=== PATIENT | female | born 1945 | race Caucasian/White ===

== ENCOUNTER 2018-02-19 01:12 | Observation (INO) | payer MEDICARE, OTHER ==
[2018-02-19 01:51] LABS: ADD MAN DIFF? NO
[2018-02-19 01:52] LABS: WHITE BLOOD COUNT 11.1 10^3/ul (4.8-10.8)
[2018-02-19 01:52] LABS: BASOPHIL # 0.1 10^3/ul (0.0-0.1); BASOPHILS % 0.5 % (0.0-2.0); EOSINOPHILS # 0.2 10^3/ul (0.0-0.5); EOSINOPHILS % 1.9 % (0.0-7.0); HEMATOCRIT 41.8 % (37.0-47.0); LYMPHOCYTES # 4.3 10^3/ul (0.8-2.9); LYMPHOCYTES % 38.5 % (15.0-51.0); MEAN CORPUSCULAR HEMOGLOBIN 30.4 pg (29.0-33.0); MEAN CORPUSCULAR HGB CONC 33.5 g/dl (32.0-37.0); MEAN CORPUSCULAR VOLUME 90.7 fl (82.0-101.0); MEAN PLATELET VOLUME 10.8 fl (7.4-10.4); MONOCYTE # 0.8 10^3/ul (0.3-0.9); MONOCYTES % 7.1 % (0.0-11.0); NEUTROPHIL # 5.8 10^3/ul (1.6-7.5); NEUTROPHILS % 51.6 % (39.0-77.0); PLATELET COUNT 230 10^3/UL (140-415); RED BLOOD COUNT 4.61 10^6/ul (4.20-5.40); RED CELL DISTRIBUTION WIDTH 12.7 % (11.5-14.5)
[2018-02-19 02:23] LABS: INR 0.82; PROTIME 11.3 Sec (11.9-14.9); PT RATIO 0.9
[2018-02-19 02:31] LABS: ALANINE AMINOTRANSFERASE 39 IU/L (13-69); ALBUMIN 4.2 g/dl (3.3-4.9); ALKALINE PHOSPHATASE 97 IU/L (42-121); ASPARTATE AMINO TRANSFERASE 25 IU/L (15-46); BILIRUBIN,INDIRECT 0.1 mg/dl (0-1.1); BILIRUBIN,TOTAL 0.1 mg/dl (0.2-1.3); BLOOD UREA NITROGEN 26 mg/dl (7-20); CALCIUM 10.2 mg/dl (8.4-10.2); CARBON DIOXIDE 27 mmol/L (21-31); CHLORIDE 96 mmol/L (97-110); CREATININE 0.91 mg/dl (0.44-1.00); GLUCOSE 330 mg/dl (70-220); TOTAL PROTEIN 7.2 g/dl (6.1-8.1)
[2018-02-19] MEDS: ACETAMINOPHEN 500 MG TAB PO (02:32)
[2018-02-19 02:36] LABS: ANION GAP 13 (5-13); SODIUM 136 mmol/L (135-144)
[2018-02-19 02:43] LABS: B-TYPE NATRIURETIC PEPTIDE 49 PG/ML (0-125); TROPONIN-I < 0.012 ng/ml (0.000-0.120)
[2018-02-19] MEDS ORDERED: ACETAMINOPHEN 325 MG TAB PO (04:30)
[2018-02-19] MEDS ORDERED: NITROGLYCERIN (SL) 0.4 MG TAB SL (04:30)
[2018-02-19] MEDS ORDERED: ONDANSETRON 4 MG INJ IV (04:30)
[2018-02-19] MEDS ORDERED: GLUCOSE GEL 15 GRAM TUBE BUCCAL (05:00)
[2018-02-19] MEDS ORDERED: GLUCAGON 1 MG INJ IM (05:00)
[2018-02-19] MEDS ORDERED: GLUCOSE GEL 15 GRAM TUBE PO ×2 (05:00)
[2018-02-19] MEDS ORDERED: DEXTROSE 50% 50 ML SYRINGE IV ×2 (05:00)
[2018-02-19] MEDS: morphine 4 MG/ML VIAL IV (05:43)
[2018-02-19 06:13] LABS: ADD MAN DIFF? NO
[2018-02-19 06:16] LABS: BASOPHIL # 0.1 10^3/ul (0.0-0.1); BASOPHILS % 0.8 % (0.0-2.0); EOSINOPHILS # 0.2 10^3/ul (0.0-0.5); HEMATOCRIT 41.1 % (37.0-47.0); HEMOGLOBIN 13.4 g/dl (12.0-16.0); LYMPHOCYTES % 38.4 % (15.0-51.0); MEAN CORPUSCULAR HEMOGLOBIN 30.3 pg (29.0-33.0); MEAN CORPUSCULAR HGB CONC 32.6 g/dl (32.0-37.0); MEAN PLATELET VOLUME 11.1 fl (7.4-10.4); MONOCYTE # 0.8 10^3/ul (0.3-0.9); MONOCYTES % 7.2 % (0.0-11.0); NEUTROPHIL # 5.3 10^3/ul (1.6-7.5); NEUTROPHILS % 51.2 % (39.0-77.0); PLATELET COUNT 200 10^3/UL (140-415); RED BLOOD COUNT 4.42 10^6/ul (4.20-5.40); RED CELL DISTRIBUTION WIDTH 12.6 % (11.5-14.5)
[2018-02-19 06:16] LABS: WHITE BLOOD COUNT 10.4 10^3/ul (4.8-10.8)
[2018-02-19 06:42] LABS: TROPONIN-I < 0.012 ng/ml (0.000-0.120)
[2018-02-19 07:05] LABS: ANION GAP 7 (5-13); BLOOD UREA NITROGEN 28 mg/dl (7-20); CARBON DIOXIDE 28 mmol/L (21-31); CHLORIDE 99 mmol/L (97-110); CHOL/HDL RATIO 11.1 RATIO; CHOLESTEROL 245 mg/dl (100-200); CREATININE 1.01 mg/dl (0.44-1.00); GLUCOSE 345 mg/dl (70-220); HDL CHOLESTEROL 22 mg/dl (33-92); POTASSIUM 4.4 mmol/L (3.5-5.1); SODIUM 134 mmol/L (135-144)
[2018-02-19 07:26] LABS: LDL CHOLESTEROL,CALCULATED 108 mg/dl; TRIGLYCERIDES 573 mg/dl (0-149)
[2018-02-19] MEDS: INSULIN ASPART [NOVOLOG] 3 ML PEN SC ×4 (08:40→20:22)
[2018-02-19 11:49] LABS: TROPONIN-I < 0.012 ng/ml (0.000-0.120)
[2018-02-19] MEDS: ERGOCALCIFEROL 50,000 UNIT CAP PO (13:30)
[2018-02-19] MEDS: ALBUTEROL HFA 8 GM INHALER INH ×2 (13:30→18:50)
[2018-02-19 17:41] LABS: TROPONIN-I < 0.012 ng/ml (0.000-0.120)
[2018-02-19] MEDS: metFORMIN 500 MG TAB PO (17:45)
[2018-02-19] MEDS: DOCUSATE SODIUM 100 MG CAP PO (20:16)
[2018-02-19] MEDS: PREGABALIN 25 MG CAP PO (20:16)
[2018-02-19] MEDS ORDERED: INSULIN DETEMIR [LEVEMIR] 3ML CART SC (21:00)
[2018-02-19] MEDS: INSULIN DETEMIR [LEVEMIR] (100 UNITS/ML) SYG SC (21:07)
[2018-02-20] MEDS: morphine 4 MG/ML VIAL IV ×2 (01:17→18:17)
[2018-02-20] MEDS: ALBUTEROL HFA 8 GM INHALER INH ×3 (01:19→13:44)
[2018-02-20] MEDS: ACCU-CHEK XX (02:02)
[2018-02-20 07:08] LABS: CHOL/HDL RATIO 9.6 RATIO; HDL CHOLESTEROL 26 mg/dl (33-92); LDL CHOLESTEROL,CALCULATED 143 mg/dl; TRIGLYCERIDES 417 mg/dl (0-149)
[2018-02-20 07:08] LABS: CHOLESTEROL 252 mg/dl (100-200)
[2018-02-20] MEDS: metFORMIN 500 MG TAB PO ×2 (07:55→17:20)
[2018-02-20] MEDS: INSULIN ASPART [NOVOLOG] 3 ML PEN SC ×3 (07:55→17:40)
[2018-02-20] MEDS ORDERED: metFORMIN 500 MG TAB PO (07:55)
[2018-02-20] MEDS: FOLIC ACID 1 MG TAB PO (09:16)
[2018-02-20] MEDS: SOLIFENACIN 5 MG TAB PO (09:16)
[2018-02-20] MEDS: FENOFIBRATE 145 MG TAB PO (09:16)
[2018-02-20] MEDS: ASPIRIN 81 MG TAB PO (09:16)
[2018-02-20] MEDS: DOCUSATE SODIUM 100 MG CAP PO (09:16)
[2018-02-20] MEDS: REGADENOSON 0.4 MG/5 ML SYG (12:52)
[2018-02-20] MEDS ORDERED: ATORVASTATIN 20 MG TAB PO (21:00)
== END 2018-02-20 18:21 | disposition home or self-care (01) ==
LOC: E/R 01:12 → TEL 03:33
DX: R07.9 Chest pain, unspecified (principal); I25.10 Atherosclerotic heart disease of native coronary artery without angina pectoris; Z95.5 Presence of coronary angioplasty implant and graft; I10 Essential (primary) hypertension; E78.5 Hyperlipidemia, unspecified; E11.9 Type 2 diabetes mellitus without complications; Z79.4 Long term (current) use of insulin; Z86.73 Personal history of transient ischemic attack (TIA), and cerebral infarction without residual deficits; I25.2 Old myocardial infarction; Z72.0 Tobacco use; Z79.82 Long term (current) use of aspirin
CPT/HCPCS: 36415; 71045; 78452; 80048; 80053; 80061; 82962; 83880; 84443; 84484; 85025; 85610; 93005; 93017; 93306; 99285-25; G0378

== ENCOUNTER 2018-04-04 20:10 | Observation (INO) | payer MEDICARE, OTHER ==
[2018-04-04 20:29] LABS: ADD MAN DIFF? NO
[2018-04-04 20:32] LABS: BASOPHIL # 0.1 10^3/ul (0.0-0.1); BASOPHILS % 0.4 % (0.0-2.0); EOSINOPHILS # 0.2 10^3/ul (0.0-0.5); EOSINOPHILS % 1.7 % (0.0-7.0); HEMATOCRIT 41.3 % (37.0-47.0); HEMOGLOBIN 13.6 g/dl (12.0-16.0); LYMPHOCYTES # 4.2 10^3/ul (0.8-2.9); LYMPHOCYTES % 37.8 % (15.0-51.0); MEAN CORPUSCULAR HEMOGLOBIN 29.8 pg (29.0-33.0); MEAN CORPUSCULAR HGB CONC 32.9 g/dl (32.0-37.0); MEAN CORPUSCULAR VOLUME 90.6 fl (82.0-101.0); MEAN PLATELET VOLUME 10.7 fl (7.4-10.4); MONOCYTE # 0.9 10^3/ul (0.3-0.9); MONOCYTES % 7.8 % (0.0-11.0); NEUTROPHIL # 5.8 10^3/ul (1.6-7.5); NEUTROPHILS % 51.9 % (39.0-77.0); PLATELET COUNT 195 10^3/UL (140-415); RED BLOOD COUNT 4.56 10^6/ul (4.20-5.40)
[2018-04-04 20:32] LABS: WHITE BLOOD COUNT 11.2 10^3/ul (4.8-10.8)
[2018-04-04] MEDS: SOD CHLORIDE 0.9% 1,000 ML IV (20:50)
[2018-04-04 20:53] LABS: INR 0.83; PROTIME 11.5 Sec (11.9-14.9); PT RATIO 0.9
[2018-04-04 20:54] LABS: PARTIAL THROMBOPLASTIN TIME 28.8 Sec (23.0-35.0)
[2018-04-04 20:55] LABS: ALANINE AMINOTRANSFERASE 23 IU/L (13-69); ALBUMIN 4.2 g/dl (3.3-4.9); ALKALINE PHOSPHATASE 86 IU/L (42-121); ANION GAP 14 (5-13); ASPARTATE AMINO TRANSFERASE 23 IU/L (15-46); BILIRUBIN,INDIRECT 0.2 mg/dl (0-1.1); BILIRUBIN,TOTAL 0.2 mg/dl (0.2-1.3); BLOOD UREA NITROGEN 14 mg/dl (7-20); CARBON DIOXIDE 23 mmol/L (21-31); CHLORIDE 97 mmol/L (97-110); CREATININE 0.61 mg/dl (0.44-1.00); GLUCOSE 275 mg/dl (70-220); LIPASE 145 U/L (23-300); SODIUM 134 mmol/L (135-144); TOTAL PROTEIN 7.7 g/dl (6.1-8.1)
[2018-04-04 21:07] LABS: B-TYPE NATRIURETIC PEPTIDE 80 PG/ML (0-125); TROPONIN-I < 0.012 ng/ml (0.000-0.120)
[2018-04-04 22:35] LABS: ADD UMIC YES; UR ASCORBIC ACID NEGATIVE (NEGATIVE); UR BACTERIA FEW /HPF (NONE SEEN); UR BILIRUBIN (Dip) NEGATIVE (NEGATIVE); UR BLOOD (Dip) 1+ mg/dL (NEGATIVE); UR CLARITY SLIGHTLY CLOUDY (CLEAR); UR COLOR YELLOW (YELLOW); UR GLUCOSE (Dip) 3+ mg/dL (NEGATIVE); UR KETONES (Dip) TRACE mg/dL (NEGATIVE); UR LEUKOCYTE ESTERASE (Dip) 3+ Leu/ul (NEGATIVE); UR NITRITE (Dip) NEGATIVE (NEGATIVE); UR RBC 15 /HPF (0-5); UR SPECIFIC GRAVITY (Dip) 1.013 (1.003-1.030); UR SQUAMOUS EPITHELIAL CELL FEW /HPF (FEW); UR TOTAL PROTEIN (Dip) NEGATIVE (NEGATIVE); UR UROBILINOGEN (Dip) NEGATIVE (NEGATIVE); UR WBC 15 /HPF (0-5)
[2018-04-05] MEDS: HYDROmorphONE 0.5 MG/0.5 ML SYG IV ×2 (01:22→21:16)
[2018-04-05] MEDS: CEFTRIAXONE 1 GM/50 ML (PMX) 50 ML IVPB (01:23)
[2018-04-05] MEDS ORDERED: GLUCOSE GEL 15 GRAM TUBE BUCCAL (01:30)
[2018-04-05] MEDS ORDERED: GLUCAGON 1 MG INJ IM (01:30)
[2018-04-05] MEDS ORDERED: GLUCOSE GEL 15 GRAM TUBE PO ×2 (01:30)
[2018-04-05] MEDS ORDERED: DEXTROSE 50% 50 ML SYRINGE IV ×2 (01:30)
[2018-04-05] MEDS: PANTOPRAZOLE (EC) 40 MG TAB PO (06:24)
[2018-04-05 06:26] LABS: ANION GAP 9 (5-13); BLOOD UREA NITROGEN 12 mg/dl (7-20); CARBON DIOXIDE 26 mmol/L (21-31); CHLORIDE 100 mmol/L (97-110); GLUCOSE 288 mg/dl (70-220); POTASSIUM 3.6 mmol/L (3.5-5.1); SODIUM 135 mmol/L (135-144)
[2018-04-05] MEDS: metFORMIN 500 MG TAB PO ×2 (08:00→17:31)
[2018-04-05] MEDS: INSULIN DETEMIR [LEVEMIR] (100 UNITS/ML) SYG SC (08:00)
[2018-04-05] MEDS: INSULIN ASPART [NOVOLOG] 3 ML PEN SC ×4 (08:29→21:00)
[2018-04-05] MEDS: PRASUGREL HYDROCHLORIDE 10 MG TABLET PO (09:15)
[2018-04-05] MEDS: ASPIRIN (EC) 81 MG TAB PO (09:15)
[2018-04-05] MEDS: AMLODIPINE 10 MG TAB PO (09:16)
[2018-04-05] MEDS: SENNA TAB PO (09:16)
[2018-04-05] MEDS: LINAGLIPTIN 5 MG TABLET PO (09:17)
[2018-04-05] MEDS: LISINOPRIL 20 MG TAB PO (09:17)
[2018-04-05 12:57] LABS: CREATINE KINASE 24 IU/L (23-200)
[2018-04-05 13:09] LABS: CK INDEX 1.8; CK-MB 0.43 ng/ml (0.0-2.4); TROPONIN-I < 0.012 ng/ml (0.000-0.120)
[2018-04-05] MEDS: TOLTERODINE (SR) 4 MG CAP PO (13:16)
[2018-04-05 18:45] LABS: CREATINE KINASE 28 IU/L (23-200)
[2018-04-05 19:00] LABS: CK INDEX 1.6; CK-MB 0.44 ng/ml (0.0-2.4); TROPONIN-I < 0.012 ng/ml (0.000-0.120)
[2018-04-05] MEDS: HYDROCODONE/APAP (5/325) TAB PO (19:36)
[2018-04-05] MEDS: ACCU-CHEK XX (23:58)
[2018-04-06 05:57] LABS: ADD MAN DIFF? NO
[2018-04-06] MEDS: PANTOPRAZOLE (EC) 40 MG TAB PO (06:02)
[2018-04-06 06:09] LABS: BASOPHIL # 0.1 10^3/ul (0.0-0.1); BASOPHILS % 0.5 % (0.0-2.0); EOSINOPHILS # 0.2 10^3/ul (0.0-0.5); HEMATOCRIT 40.6 % (37.0-47.0); HEMOGLOBIN 13.4 g/dl (12.0-16.0); LYMPHOCYTES % 42.2 % (15.0-51.0); MEAN CORPUSCULAR HEMOGLOBIN 30.2 pg (29.0-33.0); MEAN CORPUSCULAR VOLUME 91.4 fl (82.0-101.0); MEAN PLATELET VOLUME 10.9 fl (7.4-10.4); MONOCYTE # 0.8 10^3/ul (0.3-0.9); NEUTROPHIL # 4.4 10^3/ul (1.6-7.5); NEUTROPHILS % 46.9 % (39.0-77.0); PLATELET COUNT 196 10^3/UL (140-415); RED BLOOD COUNT 4.44 10^6/ul (4.20-5.40); RED CELL DISTRIBUTION WIDTH 13.2 % (11.5-14.5)
[2018-04-06 06:09] LABS: WHITE BLOOD COUNT 9.5 10^3/ul (4.8-10.8)
[2018-04-06 06:19] LABS: ANION GAP 12 (5-13); BLOOD UREA NITROGEN 13 mg/dl (7-20); CALCIUM 10.2 mg/dl (8.4-10.2); CARBON DIOXIDE 28 mmol/L (21-31); CHLORIDE 97 mmol/L (97-110); CREATININE 0.73 mg/dl (0.44-1.00); GLUCOSE 140 mg/dl (70-220); MAGNESIUM 1.8 mg/dl (1.7-2.5); SODIUM 137 mmol/L (135-144)
[2018-04-06] MEDS: metFORMIN 500 MG TAB PO ×2 (07:25→16:45)
[2018-04-06] MEDS: INSULIN DETEMIR [LEVEMIR] (100 UNITS/ML) SYG SC (07:29)
[2018-04-06] MEDS: ASPIRIN (EC) 81 MG TAB PO (07:48)
[2018-04-06] MEDS: PRASUGREL HYDROCHLORIDE 10 MG TABLET PO (07:49)
[2018-04-06] MEDS: BENZONATATE 100 MG CAP PO (07:50)
[2018-04-06] MEDS: AMLODIPINE 10 MG TAB PO (07:51)
[2018-04-06] MEDS: TOLTERODINE (SR) 4 MG CAP PO (07:55)
[2018-04-06] MEDS: LINAGLIPTIN 5 MG TABLET PO (07:55)
[2018-04-06] MEDS: LISINOPRIL 20 MG TAB PO (07:56)
[2018-04-06] MEDS: INSULIN ASPART [NOVOLOG] 3 ML PEN SC ×4 (08:07→20:25)
[2018-04-06] MEDS: CEFTRIAXONE 1 GM/50 ML (PMX) 50 ML IVPB (12:05)
[2018-04-06] MEDS: HYDROCODONE/APAP (5/325) TAB PO ×2 (16:43→22:03)
[2018-04-06] MEDS ORDERED: BETAMET NA PHOS/AC(6 MG/ML) 5ML INJ INJ (22:00)
[2018-04-06] MEDS ORDERED: BUPIVACAINE 0.5%/EPI (SDV) 30 ML INJ INJ (22:00)
[2018-04-07] MEDS: ACCU-CHEK XX (02:00)
[2018-04-07] MEDS: PANTOPRAZOLE (EC) 40 MG TAB PO (06:30)
[2018-04-07] MEDS: HYDROCODONE/APAP (5/325) TAB PO (06:38)
[2018-04-07] MEDS: INSULIN ASPART [NOVOLOG] 3 ML PEN SC ×4 (08:07→21:00)
[2018-04-07] MEDS: metFORMIN 500 MG TAB PO ×2 (08:13→17:37)
[2018-04-07] MEDS: INSULIN DETEMIR [LEVEMIR] (100 UNITS/ML) SYG SC (08:16)
[2018-04-07] MEDS: ASPIRIN (EC) 81 MG TAB PO (10:43)
[2018-04-07] MEDS: PRASUGREL HYDROCHLORIDE 10 MG TABLET PO (10:43)
[2018-04-07] MEDS: LINAGLIPTIN 5 MG TABLET PO (10:43)
[2018-04-07] MEDS: TOLTERODINE (SR) 4 MG CAP PO (10:43)
[2018-04-07] MEDS: AMLODIPINE 10 MG TAB PO (10:44)
[2018-04-07] MEDS: CEFTRIAXONE 1 GM/50 ML (PMX) 50 ML IVPB (10:50)
[2018-04-07] MEDS: LISINOPRIL 20 MG TAB PO (10:50)
[2018-04-08] MEDS: ACCU-CHEK XX (02:00)
[2018-04-08] MEDS: HYDROCODONE/APAP (5/325) TAB NGT (02:37)
[2018-04-08] MEDS: HYDROCODONE/APAP (5/325) TAB PO (02:39)
[2018-04-08] MEDS: PANTOPRAZOLE (EC) 40 MG TAB PO (06:54)
[2018-04-08] MEDS: INSULIN ASPART [NOVOLOG] 3 ML PEN SC ×3 (07:44→17:12)
[2018-04-08] MEDS: LINAGLIPTIN 5 MG TABLET PO (09:00)
[2018-04-08] MEDS: ASPIRIN (EC) 81 MG TAB PO (09:00)
[2018-04-08] MEDS: INSULIN DETEMIR [LEVEMIR] (100 UNITS/ML) SYG SC (09:02)
[2018-04-08] MEDS: metFORMIN 500 MG TAB PO ×2 (09:03→17:17)
[2018-04-08] MEDS: PRASUGREL HYDROCHLORIDE 10 MG TABLET PO (09:04)
[2018-04-08] MEDS: AMLODIPINE 10 MG TAB PO (09:04)
[2018-04-08] MEDS: TOLTERODINE (SR) 4 MG CAP PO (09:04)
[2018-04-08] MEDS: CEFTRIAXONE 1 GM/50 ML (PMX) 50 ML IVPB (09:31)
[2018-04-08] MEDS: LISINOPRIL 20 MG TAB PO (09:31)
[2018-04-08] MEDS: ACETAMINOPHEN 325 MG TAB PO (11:42)
[2018-04-08 15:29] LABS: ADD MAN DIFF? NO
[2018-04-08 15:32] LABS: WHITE BLOOD COUNT 9.4 10^3/ul (4.8-10.8)
[2018-04-08 15:32] LABS: BASOPHIL # 0.1 10^3/ul (0.0-0.1); BASOPHILS % 0.5 % (0.0-2.0); EOSINOPHILS # 0.2 10^3/ul (0.0-0.5); EOSINOPHILS % 1.8 % (0.0-7.0); HEMATOCRIT 40.8 % (37.0-47.0); HEMOGLOBIN 13.4 g/dl (12.0-16.0); LYMPHOCYTES # 3.2 10^3/ul (0.8-2.9); LYMPHOCYTES % 34.6 % (15.0-51.0); MEAN CORPUSCULAR HEMOGLOBIN 30.1 pg (29.0-33.0); MEAN CORPUSCULAR HGB CONC 32.8 g/dl (32.0-37.0); MEAN CORPUSCULAR VOLUME 91.7 fl (82.0-101.0); MEAN PLATELET VOLUME 10.1 fl (7.4-10.4); MONOCYTE # 0.7 10^3/ul (0.3-0.9); MONOCYTES % 7.2 % (0.0-11.0); NEUTROPHIL # 5.2 10^3/ul (1.6-7.5); NEUTROPHILS % 55.6 % (39.0-77.0); PLATELET COUNT 211 10^3/UL (140-415); RED BLOOD COUNT 4.45 10^6/ul (4.20-5.40); RED CELL DISTRIBUTION WIDTH 13.2 % (11.5-14.5)
[2018-04-08 15:50] LABS: ANION GAP 9 (5-13); BLOOD UREA NITROGEN 19 mg/dl (7-20); CALCIUM 10.2 mg/dl (8.4-10.2); CARBON DIOXIDE 27 mmol/L (21-31); CHLORIDE 99 mmol/L (97-110); CREATININE 0.72 mg/dl (0.44-1.00); GLUCOSE 87 mg/dl (70-220); POTASSIUM 4.4 mmol/L (3.5-5.1); SODIUM 135 mmol/L (135-144)
== END 2018-04-08 20:00 | disposition home or self-care (01) ==
LOC: 6WM 21:52 → E/R 20:10
DX: R55 Syncope and collapse (principal); M17.11 Unilateral primary osteoarthritis, right knee; I10 Essential (primary) hypertension; I25.10 Atherosclerotic heart disease of native coronary artery without angina pectoris; E11.9 Type 2 diabetes mellitus without complications; R94.31 Abnormal electrocardiogram [ECG] [EKG]; E11.65 Type 2 diabetes mellitus with hyperglycemia; Z79.4 Long term (current) use of insulin; Z79.84 Long term (current) use of oral hypoglycemic drugs; R00.0 Tachycardia, unspecified
CPT/HCPCS: 36415; 71045; 73562; 80048; 80053; 81001; 82550; 82553; 82962; 83690; 83735; 83880; 84484; 85025; 85610; 85730; 93005; 99285-25; G0378

== ENCOUNTER 2018-10-12 18:10 | Emergency (ER) | payer MEDICARE, OTHER ==
[2018-10-12 19:14] LABS: ADD MAN DIFF? NO
[2018-10-12 19:15] LABS: WHITE BLOOD COUNT 9.3 10^3/ul (4.8-10.8)
[2018-10-12 19:15] LABS: BASOPHIL # 0.1 10^3/ul (0.0-0.1); BASOPHILS % 0.6 % (0.0-2.0); EOSINOPHILS # 0.2 10^3/ul (0.0-0.5); EOSINOPHILS % 2.3 % (0.0-7.0); HEMATOCRIT 42.4 % (37.0-47.0); HEMOGLOBIN 13.8 g/dl (12.0-16.0); LYMPHOCYTES # 3.9 10^3/ul (0.8-2.9); LYMPHOCYTES % 41.3 % (15.0-51.0); MEAN CORPUSCULAR HEMOGLOBIN 30.6 pg (29.0-33.0); MEAN CORPUSCULAR HGB CONC 32.5 g/dl (32.0-37.0); MEAN PLATELET VOLUME 11.3 fl (7.4-10.4); MONOCYTE # 0.7 10^3/ul (0.3-0.9); NEUTROPHIL # 4.5 10^3/ul (1.6-7.5); NEUTROPHILS % 48.4 % (39.0-77.0); PLATELET COUNT 190 10^3/UL (140-415); RED BLOOD COUNT 4.51 10^6/ul (4.20-5.40); RED CELL DISTRIBUTION WIDTH 13.2 % (11.5-14.5)
[2018-10-12] MEDS: SOD CHLORIDE 0.9% 1,000 ML IV (19:16)
[2018-10-12 19:21] LABS: ALANINE AMINOTRANSFERASE 38 IU/L (13-69); ALBUMIN 4.5 g/dl (3.3-4.9); ALKALINE PHOSPHATASE 77 IU/L (42-121); ANION GAP 13 (5-13); ASPARTATE AMINO TRANSFERASE 24 IU/L (15-46); BILIRUBIN,INDIRECT 0.3 mg/dl (0-1.1); BILIRUBIN,TOTAL 0.3 mg/dl (0.2-1.3); BLOOD UREA NITROGEN 15 mg/dl (7-20); CALCIUM 10.1 mg/dl (8.4-10.2); CARBON DIOXIDE 24 mmol/L (21-31); CHLORIDE 99 mmol/L (97-110); CREATININE 0.68 mg/dl (0.44-1.00); POTASSIUM 4.3 mmol/L (3.5-5.1); SODIUM 136 mmol/L (135-144); TOTAL PROTEIN 7.7 g/dl (6.1-8.1)
[2018-10-12 19:29] LABS: GLUCOSE 407 mg/dl (70-220)
[2018-10-12 19:33] LABS: B-TYPE NATRIURETIC PEPTIDE 60 PG/ML (0-125); TROPONIN-I < 0.012 ng/ml (0.000-0.120)
[2018-10-12] MEDS: CEFEPIME 1GM/50 ML (PMX) 50 ML IVPB (19:36)
[2018-10-12] MEDS: VANCOMYCIN 1 GM (PMX) 250 ML IVPB (20:26)
[2018-10-12] MEDS: INSULIN LISPRO 100 UNIT/ML VIAL SC (20:37)
[2018-10-12] MEDS: ACCU-CHEK XX (20:41)
[2018-10-12] MEDS: ALBUTEROL 0.083% (NEB) 2.5 MG/3 ML AMP HHN (20:47)
== END 2018-10-12 23:41 | disposition home or self-care (01) ==
LOC: E/R 18:10
DX: J40 Bronchitis, not specified as acute or chronic (principal); J44.9 Chronic obstructive pulmonary disease, unspecified; I10 Essential (primary) hypertension; E11.9 Type 2 diabetes mellitus without complications; Z79.4 Long term (current) use of insulin; Z79.82 Long term (current) use of aspirin; Z86.73 Personal history of transient ischemic attack (TIA), and cerebral infarction without residual deficits; Z87.891 Personal history of nicotine dependence
CPT/HCPCS: 36415; 71045; 80053; 82962; 83880; 84484; 85025; 87040-91; 94664; 96372; 96374; 96375; 99284-25